=== PATIENT | female | born 1995 | race Caucasian/White ===

== ENCOUNTER 2017-05-05 14:06 | Emergency (ER) | payer OTHER ==
[~2017-05-05] VITALS: Ht 160 cm; Wt 100.0 kg
[2017-05-05] MEDS ORDERED: FLEXERIL PO (15:35)
[2017-05-05] MEDS ORDERED: ULTRAM50 M1 PO (15:35)
[2017-05-05 15:48] VITALS: BP 122/84
== END 2017-05-05 15:48 | disposition home or self-care (01) | DRG 563 ==
LOC: ED 14:06
DX: S39.012A Strain of muscle, fascia and tendon of lower back, initial encounter (principal); X50.3XXA Overexertion from repetitive movements, initial encounter; Y93.I9 Activity, other involving external motion; Y92.009 Unspecified place in unspecified non-institutional (private) residence as the place of occurrence of the external cause